=== PATIENT | male | born 2000 | race Caucasian/White ===

== ENCOUNTER 2019-03-18 17:37 | Emergency (ER) | payer SELFPAY ==
[~2019-03-18] VITALS: Ht 160 cm; Wt 61.9 kg
[2019-03-18 18:14] VITALS: BP 114/62; PULSE 60; RESP 18; Ht 160 cm; Wt 61.9 kg
== END 2019-03-18 23:50 | disposition left against medical advice (07) ==
LOC: FTE 17:37
DX: Z53.21 Procedure and treatment not carried out due to patient leaving prior to being seen by health care provider (principal)